=== PATIENT | female | born 1960 | race American Indian/Alaskan Native ===

== ENCOUNTER 2017-06-24 09:13 | Outpatient (CLI) | payer OTHER ==
[2017-06-24] MEDS ORDERED: PROVENTIL IH ONE (09:47)
== END 2017-06-24 09:14 | disposition home or self-care (01) ==
LOC: PF 09:13
PROVIDERS: ATTEND Internal Medicine
DX: J45.909 Unspecified asthma, uncomplicated (principal); E03.9 Hypothyroidism, unspecified; F32.3 Major depressive disorder, single episode, severe with psychotic features; M79.7 Fibromyalgia; G62.9 Polyneuropathy, unspecified; M19.90 Unspecified osteoarthritis, unspecified site; Z87.891 Personal history of nicotine dependence
CPT/HCPCS: 94060; 94640